=== PATIENT | male | born 1960 | race Hispanic/Latino ===

== ENCOUNTER 2017-02-23 11:09 | Emergency (ER) | payer SELFPAY ==
--- NOTE | 2017-02-23 13:08 | XRay Report ---
Left knee 3 views. History: Pain after fall. Findings: There is no evidence of fracture or other acute findings. Chondrocalcinosis is noted laterally. No soft tissue swelling is seen. Bony mineralization is normal. Impression: No acute findings. Chondrocalcinosis laterally most like represents early degenerative joint disease although this could be related to hyperparathyroidism, ochronosis, and numerous other conditions.
[2017-02-23] MEDS ORDERED: TORADOL IM ONE (23:11)
[2017-02-23] MEDS ORDERED: NORCO 5/325 PO ONE (23:11)
--- NOTE | 2017-02-24 00:31 | Emergency Department Report ---
ED Extremity Problem HPI - General Chief complaint: Extremity Injury, Lower Stated complaint: LEFT LEG PAIN Time Seen by Provider: 02/23/17 23:06 Source: patient Mode of arrival: Ambulatory Limitations: Physical Limitation - History of Present Illness Initial comments: 56 year old male complains of left knee pain 3 months acutely worsening after falling 2 days ago. Patient states she has has bilateral knee problems and his legs give out him at times. He hears crackling a popping sound to his left knee and pain is greatest at the medial aspect of the joint. Patient ambulates with a cane for years. Pain is aching, moderate to severe in intensity, worse with palpation and movement. No relieving factor reported. Patient denies any lightheadedness, dizziness, chest pain, shortness of breath. - Related Data Previous Rx's Medication Instructions Recorded Last Taken Type HYDROcodone/APAP 5-325 [[place] 1 each PO Q6HR PRN #20 tablet 02/24/17 Unknown Rx 5/325] Ibuprofen [Motrin] 600 mg PO Q8H PRN #30 tablet 02/24/17 Unknown Rx Allergies Allergy/AdvReac Type Severity Reaction Status Date / Time No Known Allergies Allergy Unverified 02/23/17 12:11 ED Review of Systems ROS: Stated complaint: LEFT LEG PAIN Other details as noted in HPI Comment: All other systems reviewed and negative Other: Constitutional: No fevers chills Eyes: No eye pain visual changes or discharge ENT: No ear pain or throat pain Neck: Denies pain Respiratory: Denies cough wheezing shortness of breath Cardiovascular: Denies chest pain, palpitations, syncope GI: Denies abdominal pain, nausea, vomiting, diarrhea : Denies dysuria Musculoskeletal: as per hpi Skin: Denies rash, lesions, erythema Neurologic: Denies headache, numbness, weakness Psychiatric: Denies suicidal ideation, hallucinations ED Past Medical Hx - Past Medical History Hx Hypertension: Yes Hx Heart Attack/AMI: Yes Hx GERD: Yes Hx Asthma: Yes Additional medical history: High cholesterol, CAD - Surgical History Hx Coronary Stent: Yes (x2) Additional Surgical History: Ankle - Social History Smoking Status: Former Smoker Substance Use Type: Alcohol - Medications Home Medications: Home Medications Medication Instructions Recorded Confirmed Last Taken Type HYDROcodone/APAP 5-325 [[place] 1 each PO Q6HR PRN #20 tablet 02/24/17 Unknown Rx 5/325] Ibuprofen [Motrin] 600 mg PO Q8H PRN #30 tablet 02/24/17 Unknown Rx ED Physical Exam - General Limitations: Physical Limitation - Other Other exam information: General: No limitations, patient is alert in no acute distress Head exam: Atraumatic, normocephalic Eyes exam: Normal appearance ENT: Moist mucous membrane, normal oropharynx Neck exam: Normal inspection, full range of motion, no meningismus nontender Respiratory exam: Clear to auscultation bilateral, no wheezes, rales, crackles Cardiovascular: Normal rate and rhythm, normal heart sounds Abdomen: Soft, nondistended, and nontender, with normal bowel sounds, no rebound, or guarding Extremity: Superficial abrasion noted to the right knee. Nontender full range of motion. Pain with extension of left knee. Pain to palpation medial knee joint. No pain to palpation of the areas of the knee. Back: Normal Inspection, full range of motion, no tenderness Neurologic: Alert, oriented x3, cranial nerves intact, no motor or sensory deficit Psychiatric: normal affect, normal mood Skin: Warm, dry, intact ED Course Vital Signs 02/23/17 02/23/17 12:11 23:02 Temperature 98.3 F Pulse Rate 73 Respiratory 18 18 Rate Blood Pressure 135/88 O2 Sat by Pulse 98 Oximetry - Reevaluation(s) Reevaluation #1: 02/24/17 00:33 During ED stay patient received Toradol and [place] With improvement in pain. He is able to flex and extend his leg without difficulty and able to bear weight ED Medical Decision Making - Radiology Data Radiology results: report reviewed (x-ray left knee: No acute findings. Chondrocalcinosis laterally most likely represents early degenerative joint changes although could also be related to hyperparathyroidism, ochronosis, and numberous other conditions) - Medical Decision Making Plan to d/c home with symptomatic treatment for ongoing knee pain. Orthopedic follow-up encouraged. X-ray report provided for follow up. - Differential Diagnosis arthritis, fracture, contusion, sprain Critical Care Time: No Critical care attestation.: If time is entered above; I have spent that time in minutes in the direct care of this critically ill patient, excluding procedure time. ED Disposition Clinical Impression: Arthritis of left knee Disposition: - TO HOME OR SELFCARE Is pt being admited?: No Does the pt Need Aspirin: No Condition: Stable Instructions: Knee Pain (ED) Additional Instructions: Take the medication as needed for pain. See the copy of your x-ray provided to the orthopedic doctor for follow-up. Prescriptions: HYDROcodone/APAP 5-325 [[place] 5/325] 1 each PO Q6HR PRN #20 tablet PRN Reason: Pain Ibuprofen [Motrin] 600 mg PO Q8H PRN #30 tablet PRN Reason: Pain Referrals: PRIMARY CAREMD [Primary Care Provider] - 3-5 Days [facility] [Provider Group] - 3-5 Days ROSALVA SUAREZ MD [Staff Physician] - 3-5 Days (orthopedic) ALEENA ESCOBAR MD [Staff Physician] - 3-5 Days (orthopedic) Time of Disposition: 00:36
[2017-02-24 00:50] VITALS: BP 140/90
== END 2017-02-24 01:23 | disposition home or self-care (01) ==
LOC: ED 11:09
DX: M13.862 Other specified arthritis, left knee (principal); I10 Essential (primary) hypertension; I25.2 Old myocardial infarction; K21.9 Gastro-esophageal reflux disease without esophagitis; J45.909 Unspecified asthma, uncomplicated; E78.00 Pure hypercholesterolemia, unspecified; Z87.891 Personal history of nicotine dependence
CPT/HCPCS: 73562; 96372; 99283; J1885